=== PATIENT | male | born 1955 | race Caucasian/White ===

== ENCOUNTER 2019-08-07 16:54 | Emergency (ER) | payer OTHER ==
[2019-08-07] MEDS ORDERED: LORazepam 2 MG/ML SDV IM ONE (18:25)
[2019-08-07] MEDS ORDERED: LORazepam 2 MG/ML SDV ONE (18:27)
--- NOTE | 2019-08-09 08:07 | ER ---
REASON FOR EMERGENCY ROOM VISIT: Bloody nose. HISTORY OF PRESENT ILLNESS: This 63-year-old man from [place] was up here ice fishing this weekend. Approximately 2 hours prior to his arrival at the emergency room, he spontaneously developed a nosebleed from his left nostril. He has a history of these, but none since his last episode 6 years ago. At that time, it was treated with silver nitrate quite successfully. He has been on blood thinners in the remote past, but none lately, other than aspirin. MEDICATIONS: Include: 1. Lisinopril 40 mg p.o. daily. 2. Sotalol 120 mg p.o. b.i.d. PAST MEDICAL HISTORY: Significant for: 1. Hypertension. 2. Ablation for arrhythmias. 3. Hypercholesterolemia. ALLERGIES: NO KNOWN ALLERGIES. REVIEW OF SYSTEMS: Pertinent positives and negatives as listed in the HPI. PHYSICAL EXAMINATION: GENERAL: He is a pleasant, talkative, even jocular man in no acute distress. He is holding his fingers to pinch off his anterior nasal chamber. VITAL SIGNS: He is afebrile. Heart rate is 87. His blood pressure was elevated at 171/132. Subsequently, his blood pressure was rechecked, and it was still in the 150s over 112 range. HEENT: Head is normocephalic. His left nostril has some crusting of blood and some blood clots in it, and this was cleared out with Q-tips. I was able to examine with a nasal speculum his nasal cavity, and on the anterior chamber, he had a couple of spots that were bleeding, and they were easily visible. Using silver nitrate, I was able to cauterize these quite successfully and it seemed to stop. I used 3 silver nitrate sticks for this purpose. CHEST: Clear to auscultation. CARDIAC: Regular rate without murmur. ABDOMEN: Soft, nontender. EXTREMITIES: Normal pulses. No edema. HOSPITAL COURSE: Once I examined and identified the bleeding site and cauterized these with silver nitrate, I packed the anterior chamber with sterile water soaked cotton, and he was comfortable with this. We observed him for approximately another 45 minutes. After this, he was somewhat anxious when he arrived. Therefore, we gave him 1 mg of Ativan IM. Hopefully, that would help with his blood pressure. I reviewed his blood pressure medications with him. He was somewhat uncertain about these so I was reluctant to add anything to what he was taking. His pills were all lined up in a pill dispenser, but the bottles were not brought along. It appeared that his epistaxis was resolved with this treatment. IMPRESSION: 1. Epistaxis, resolved. 2. Hypertension, inadequately controlled most likely. PLAN: I stressed the importance of him continuing his antihypertensive medication. He will be returning to [facility] tomorrow, and he assures me that he will see his provider on Friday if at all possible. My thinking is that it is conceivable that his hypertension may be an etiologic factor in his developing his epistaxis that seems to be controlled now. He knows that, should he have recurrence of the problem, he can return. I instructed him to leave the cotton packing in his anterior nose overnight, and then he can remove it in the morning. All questions were answered. He understands and agrees with this plan. JOE /[id number]
== END 2019-08-07 19:15 | disposition home or self-care (01) ==
LOC: LB.ED 16:54
DX: R04.0 Epistaxis (principal); I10 Essential (primary) hypertension; Z79.899 Other long term (current) drug therapy
CPT/HCPCS: 30901; 36415; 85025; 85610; 96372; 99283; J2060